=== PATIENT | male | born 1995 | race Caucasian/White ===

== ENCOUNTER 2020-04-10 12:52 | Emergency (ER) | payer OTHER ==
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
[2020-04-10] MEDS ORDERED: Sodium Chloride 0.9% 10 ML Syringe FLUSH PRN (13:10)
[2020-04-10] MEDS ORDERED: Iopamidol 755 Mg/ML 100 ML Bottle IVPUSH ONE (13:10)
[2020-04-10] MEDS ORDERED: Sodium Chloride 0.9% 1,000 ML IV SCH (13:15)
--- NOTE | 2020-04-10 13:48 | CT ---
Head CT Technique: Multiple axial sections through the brain were obtained. Intravenous contrast was not utilized. Comparison: No prior intracranial imaging is available. Findings: Ventricles along with basal cisterns and sulci over the convexities are within normal limits for the patient's age. No abnormal parenchymal densities are seen. No evidence of intracranial hemorrhage. No midline shift or mass-effect is seen. Bone window settings were reviewed. No acute calvarial finding is seen. Visualized mastoid sinuses and visualized paranasal sinuses are clear. Impression: 1. Nothing acute is appreciated on noncontrast head CT study. Diagnostic code #1 This report was dictated in MDT
--- NOTE | 2020-04-10 13:54 | CT ---
CT lumbar spine Technique: Multiple axial sections through the lumbar spine were obtained. Reconstructed coronal and sagittal images were obtained. Comparison: No prior lumbar spine imaging. Findings: Vertebral body heights and disc spaces are maintained. Vertebral bodies and posterior arches are intact. No fracture is appreciated. Mild asymmetric disc bulge is noted at L5-S1 posteriorly to the left side slightly indenting the anterior thecal sac. No abnormal subluxation is seen. Impression: 1. Asymmetric posterior disc bulge at L5-S1 believed to be pre-existing. 2. Nothing acute is appreciated on CT study of the lumbar spine. Diagnostic code #2 This report was dictated in MDT
--- NOTE | 2020-04-10 13:54 | CT ---
CT thoracic spine Technique: Multiple axial sections through the thoracic spine were obtained. Reconstructed coronal and sagittal images were obtained. Findings: Vertebral body heights and disc spaces are maintained. Vertebral bodies and posterior arches are intact. No fracture is appreciated. No bony central or bony neural foraminal stenosis is seen. No paravertebral soft tissue swelling is noted. Impression: 1. Nothing acute is appreciated on CT study of the thoracic spine. Diagnostic code #1 This report was dictated in MDT
--- NOTE | 2020-04-10 13:55 | CT ---
CT cervical spine Technique: Multiple axial sections were obtained from above C1 inferiorly to the mid T3 level. Reconstructed coronal and sagittal images were reviewed. Comparison: No prior cervical spine imaging is available. Vertebral body heights and disc spaces are maintained. Vertebral bodies and posterior arches are intact. No fracture is appreciated. No bony central or bony neural foraminal stenosis is seen. No acute fracture or subluxation is seen. Impression: 1. Nothing acute is appreciated on CT study of the cervical spine. Diagnostic code #1 This report was dictated in MDT
--- NOTE | 2020-04-10 14:01 | CT ---
CT chest Technique: Multiple axial sections through the chest were obtained. Intravenous contrast was utilized. Reconstructed coronal and sagittal images were obtained. Findings: Thoracic aorta appears within normal limits. Soft tissue density is noted within the superior mediastinum which is most likely due to normal thymic tissue. No adenopathy is seen. No pericardial fluid is seen. Lung window settings were reviewed. No acute pulmonary contusion is seen. No acute parenchymal densities are seen. No pleural effusions or pneumothorax is seen. Bone window settings were reviewed. No acute osseous finding is appreciated. Impression: 1. Nothing acute is appreciated on CT study of the chest. Diagnostic code #1 This report was dictated in MDT CT abdomen and pelvis Technique: Multiple axial sections were obtained from above the dome of the diaphragm inferiorly through the pubic symphysis. Intravenous contrast was utilized. No oral contrast has been given. Comparison: No prior abdominal imaging is available. Findings: Liver shows no focal parenchymal abnormality. Spleen appears normal. Adrenal glands show no nodule. Kidneys show symmetric contrast enhancement without hydronephrosis or mass. Aorta shows no aneurysm. Gallbladder contains no calcified gallstones. No retroperitoneal adenopathy or mesenteric abnormalities are seen. No pelvic mass or adenopathy is identified. Appendix is felt to be visualized and is normal in size. No free fluid or inflammatory change is seen. Delayed images shows contrast within the distal ureters as well as contrast being seen within the bladder. Bone window settings were reviewed which show no acute osseous finding. Impression: 1. Nothing acute is appreciated on CT study of the abdomen and pelvis. Diagnostic code #1 This report was dictated in MDT
--- NOTE | 2020-04-10 14:02 | CR ---
Right knee: 4 views of the right knee were obtained. Comparison: No prior knee exam. Medial and lateral joint compartments are maintained in height. No joint effusion is seen. No fracture or other bony abnormality is appreciated. Impression: 1. No abnormality is appreciated on right knee exam. Diagnostic code #1 This report was dictated in MDT
--- NOTE | 2020-04-10 14:10 | CR ---
Left wrist: 4 views of the left wrist were obtained. Comparison: No previous wrist study. Joint spaces are preserved. No fracture, dislocation or other bony abnormality is appreciated. Impression: 1. No abnormality is appreciated on the left wrist exam. Diagnostic code #1 This report was dictated in MDT
== END 2020-04-10 14:30 | disposition home or self-care (01) ==
LOC: JD.ED 12:52
DX: S13.4XXA Sprain of ligaments of cervical spine, initial encounter (principal); S63.502A Unspecified sprain of left wrist, initial encounter; S80.01XA Contusion of right knee, initial encounter; S40.811A Abrasion of right upper arm, initial encounter; S30.810A Abrasion of lower back and pelvis, initial encounter; E10.9 Type 1 diabetes mellitus without complications; Z88.2 Allergy status to sulfonamides; V23.4XXA Motorcycle driver injured in collision with car, pick-up truck or van in traffic accident, initial encounter
CPT/HCPCS: 36415; 70450; 71260; 72125; 72128; 72131; 73110; 73562; 74177; 80053; 82962; 85025; 85610; 85730; 99284; Q9967; 99283

== ENCOUNTER 2020-04-14 14:34 | Emergency (ER) | payer SELFPAY | END 2020-04-14 16:10 | disposition left against medical advice (07) | LOC: JD.ED 14:34 | DX: Z53.21 Procedure and treatment not carried out due to patient leaving prior to being seen by health care provider (principal) ==

== ENCOUNTER 2020-07-06 21:35 | Emergency (ER) | payer BC ==
[2020-07-06] MEDS ORDERED: Lactated Ringers 1,000 ML IV ONE (21:40)
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
== END 2020-07-06 22:40 ==
LOC: JD.ED 21:35
DX: S01.93XA Puncture wound without foreign body of unspecified part of head, initial encounter (principal); S01.01XA Laceration without foreign body of scalp, initial encounter; F10.129 Alcohol abuse with intoxication, unspecified; E10.9 Type 1 diabetes mellitus without complications; E87.6 Hypokalemia; Z88.2 Allergy status to sulfonamides; Z20.828 Contact with and (suspected) exposure to other viral communicable diseases; R20.0 Anesthesia of skin; Y90.0 Blood alcohol level of less than 20 mg/100 ml
CPT/HCPCS: 36415; 70450; 80053; 80307; 85025; 85610; 85730; 87635; 99285; J7120; 99283; U0002